=== PATIENT | female | born 1975 | race Two or more races ===

== ENCOUNTER 2021-06-04 09:41 | Outpatient (CLI) | payer OTHER | END 2021-06-04 09:42 | disposition home or self-care (01) | LOC: LAB 09:41 | PROVIDERS: ATTEND Obstetrics & Gynecology | DX: E78.2 Mixed hyperlipidemia (principal); E16.2 Hypoglycemia, unspecified; N39.0 Urinary tract infection, site not specified; R97.1 Elevated cancer antigen 125 [CA 125]; E56.9 Vitamin deficiency, unspecified; E55.9 Vitamin D deficiency, unspecified; E03.8 Other specified hypothyroidism; R53.1 Weakness; E66.01 Morbid (severe) obesity due to excess calories; Z11.3 Encounter for screening for infections with a predominantly sexual mode of transmission ==

== ENCOUNTER 2021-06-04 11:19 | Outpatient (CLI) | payer OTHER | END 2021-06-04 11:30 | disposition home or self-care (01) | LOC: MAMO-SONO 11:19 | PROVIDERS: ATTEND Obstetrics & Gynecology | DX: N64.4 Mastodynia (principal); N63.0 Unspecified lump in unspecified breast; Z12.31 Encounter for screening mammogram for malignant neoplasm of breast ==

== ENCOUNTER 2021-08-07 07:39 | Outpatient (CLI) | payer OTHER | END 2021-08-07 07:49 | disposition home or self-care (01) | LOC: RAD 07:39 | PROVIDERS: ATTEND Internal Medicine | DX: N20.0 Calculus of kidney (principal); I10 Essential (primary) hypertension ==

== ENCOUNTER 2021-11-16 10:22 | Outpatient (CLI) | payer OTHER | END 2021-11-16 10:23 | disposition home or self-care (01) | LOC: RAD 10:22 | PROVIDERS: ATTEND Internal Medicine | DX: M25.522 Pain in left elbow (principal); M06.4 Inflammatory polyarthropathy ==

== ENCOUNTER → 2022-03-22 10:11 | Outpatient (CLI) | payer OTHER | END | disposition home or self-care (01) | LOC: LAB 10:11 | PROVIDERS: ATTEND Internal Medicine | DX: I10 Essential (primary) hypertension (principal); E11.9 Type 2 diabetes mellitus without complications; E03.9 Hypothyroidism, unspecified; E78.5 Hyperlipidemia, unspecified; K76.9 Liver disease, unspecified; N20.0 Calculus of kidney; N39.0 Urinary tract infection, site not specified; E11.40 Type 2 diabetes mellitus with diabetic neuropathy, unspecified; M81.0 Age-related osteoporosis without current pathological fracture; M06.4 Inflammatory polyarthropathy; Z12.11 Encounter for screening for malignant neoplasm of colon; D64.9 Anemia, unspecified; E55.9 Vitamin D deficiency, unspecified; R79.89 Other specified abnormal findings of blood chemistry; A64 Unspecified sexually transmitted disease; E83.51 Hypocalcemia ==

== ENCOUNTER 2022-04-12 09:23 | Outpatient (CLI) | payer OTHER | END 2022-04-12 09:29 | disposition home or self-care (01) | LOC: LAB 09:23 | PROVIDERS: ATTEND Obstetrics & Gynecology | DX: E11.9 Type 2 diabetes mellitus without complications (principal); N91.1 Secondary amenorrhea; E22.1 Hyperprolactinemia ==

== ENCOUNTER 2022-05-16 08:44 | Outpatient (CLI) | payer OTHER | END 2022-05-16 23:00 | disposition home or self-care (01) | LOC: LAB 08:44 | PROVIDERS: ATTEND Obstetrics & Gynecology | DX: E11.9 Type 2 diabetes mellitus without complications (principal); E22.1 Hyperprolactinemia ==

== ENCOUNTER 2022-05-23 08:29 | Outpatient (CLI) | payer OTHER | END 2022-05-23 08:49 | disposition home or self-care (01) | LOC: MRI 08:29 | PROVIDERS: ATTEND Obstetrics & Gynecology | DX: E22.1 Hyperprolactinemia (principal); D35.2 Benign neoplasm of pituitary gland | CPT/HCPCS: 70553 ==

== ENCOUNTER → 2022-06-25 | Outpatient (CLI) | payer OTHER | END | disposition home or self-care (01) | LOC: MAMO-SONO 13:07 | PROVIDERS: ATTEND Specialist | DX: Z12.31 Encounter for screening mammogram for malignant neoplasm of breast (principal); N60.11 Diffuse cystic mastopathy of right breast; N60.12 Diffuse cystic mastopathy of left breast ==

== ENCOUNTER 2023-06-24 12:31 | Outpatient (CLI) | payer OTHER | END 2023-06-24 12:34 | disposition home or self-care (01) | LOC: NUCLEAR 12:31 | PROVIDERS: ATTEND Obstetrics & Gynecology | DX: M81.0 Age-related osteoporosis without current pathological fracture (principal) ==

== ENCOUNTER → 2023-09-11 | Outpatient (CLI) | payer OTHER | END | disposition home or self-care (01) | LOC: MAMO-SONO 08:28 | PROVIDERS: ATTEND Obstetrics & Gynecology | DX: N60.11 Diffuse cystic mastopathy of right breast (principal); N60.12 Diffuse cystic mastopathy of left breast; Z12.31 Encounter for screening mammogram for malignant neoplasm of breast ==

== ENCOUNTER 2025-03-09 07:31 | Outpatient (CLI) | payer OTHER ==
[2025-03-09 08:18] LABS: URINE APPEARANCE Clear; URINE BILIRRUBIN Negative (NEGATIVE); URINE BLOOD Negative; URINE COLOR Yellow; URINE GLUCOSE Negative (NEGATIVE); URINE KETONE Negative (NEGATIVE); URINE LEUKOCYTE Trace; URINE NITRATE Negative; URINE PROTEIN Negative (NEGATIVE); URINE UROBILINOGEN 0.2 E.U./dl
[2025-03-09 08:19] LABS: URINE BACTERIA 22.7 uL (0.0-1933); URINE EPITHELIAL CELLS 12.2 uL (0.0-38.8); URINE RBC 15.5 uL (0.0-20.8); URINE WBC 9.3 uL (0.0-23.2)
[2025-03-09 08:37] LABS: URINE CAST 1.02 uL (0.0-1.40)
[2025-03-09 08:47] LABS: BASO % 0.5 % (0.1-1.2); EOS # 0.05 (0.04-0.54); EOS % 0.8 % (0.7-7.0); LYMPH # 1.19 (1.18-3.74); LYMPH % 19.0 % (19.3-53.1); MEAN PLATELET VOLUME 10.00 fl (9.4-12.4); MONO # 0.42 (0.24-0.82); MONO % 6.7 % (4.7-12.5); NEUT # 4.55 (1.56-6.13); NEUT % 72.5 % (34.0-71.1); RED CELL DISTRIBUTION WIDTH 13.1 % (11.6-14.4)
[2025-03-09 10:10] LABS: ALT/SGPT 26.0 U/L (12-78); AST/SGOT 18.0 U/L (15-37); BILIRUBIN TOTAL 0.82 mg/dL (0.3-1.2); BUN CREA RATIO 11.0 (7.0-25.0); CHOL HDL RATIO 5.1 (0-5.0); CREATININE SERUM 0.71 mg/dL (0.55-1.02); GFR 86.79; GLOBULINA 3.5 G/DL (2.4-3.5); GLUCOSE FASTING 88.0 mg/dL (65-100); HDL 42.0 mg/dl (40-60); LDL 144.0 mg/dl (0-130); OSMOLALITY SERUM 286.0 MOSM/KG (275-295); T4 FREE 1.14 NG/ML (0.76-1.46); T4 TOTAL 10.37 UG/DL (4.8-13.9); TSH 1.62 uIU/mL (0.358-3.74); VLDL 28.0 (0-39)
[2025-03-09 12:07] LABS: VITAMIN D3 25 HYDROXY 28.55 ng/ml (30-120)
[2025-03-10 09:08] LABS: ANTI THYROID PEROXIDASE < 9 IU/mL (0-34); CA 125 20.0 U/mL (0.0-38.1); ESTRADIOL SERUM 11.2 pg/mL (.); PROLACTIN 197.0 ng/mL (3.6-25.2)
== END 2025-03-09 07:32 | disposition home or self-care (01) ==
LOC: LAB 07:31
DX: E22.1 Hyperprolactinemia (principal); E16.2 Hypoglycemia, unspecified; N39.0 Urinary tract infection, site not specified; E78.2 Mixed hyperlipidemia; E56.9 Vitamin deficiency, unspecified; R97.1 Elevated cancer antigen 125 [CA 125]; R53.1 Weakness; E66.01 Morbid (severe) obesity due to excess calories; D68.9 Coagulation defect, unspecified; N95.1 Menopausal and female climacteric states; R68.82 Decreased libido; E03.9 Hypothyroidism, unspecified; E11.9 Type 2 diabetes mellitus without complications; D35.2 Benign neoplasm of pituitary gland

== ENCOUNTER 2025-03-09 08:51 | Outpatient (CLI) | payer OTHER | END 2025-03-09 08:53 | disposition home or self-care (01) | LOC: MAMO-SONO 08:51 | PROVIDERS: ATTEND Obstetrics & Gynecology | DX: N64.4 Mastodynia (principal); N63.0 Unspecified lump in unspecified breast; Z12.31 Encounter for screening mammogram for malignant neoplasm of breast ==